=== PATIENT | male | born 1960 | race African-American/Black ===

== ENCOUNTER 2021-07-13 19:24 | Emergency (ER) | payer OTHER ==
[~2021-07-13] VITALS: Ht 182.9 cm; Wt 75.0 kg
[~2021-07-13 19:24] MED LIST: ATOR10TA69 PO; HYDR12.529 PO; LOSA25TA26 PO
[2021-07-13] MEDS ORDERED: SODIUM CHLORIDE 0.9% 1,000 ML IV ONE (20:00)
[2021-07-13 20:22] LABS: BASOPHILS % 0.6 % (0.0-2.0); EOSINOPHILS % 2.2 % (0.0-5.0); HEMATOCRIT. 38.7 % (42.0-52.0); HEMOGLOBIN. 13.6 g/dL (14.0-18.0); LYMPHOCYTES % 24.5 % (20.0-50.0); MEAN CORPUSCULAR HEMOGLOBIN 37.5 pg (28.0-32.0); MEAN CORPUSCULAR VOLUME 106.6 fL (80.0-94.0); MEAN PLATELET VOLUME 8.8 fl (7.4-10.4); MONOCYTES % 8.2 % (2.0-8.0); NEUTROPHILS % 64.5 % (40.0-76.0); PLATELET 135 x1000/uL (130-400); RED BLOOD CELL COUNT 3.63 mill/uL (4.7-6.1); RED CELL DISTRIBUTION WIDTH 13.3 % (11.6-14.6)
[2021-07-13 20:25] VITALS: BP 129/88
[2021-07-13 20:29] LABS: CHLORIDE 107 mEq/L (98-107)
[2021-07-13 20:51] LABS: ETHANOL BLOOD 375 mg/dL
== END 2021-07-13 23:25 | disposition home or self-care (01) ==
LOC: ER 19:24
DX: R55 Syncope and collapse (principal); D64.9 Anemia, unspecified; F10.129 Alcohol abuse with intoxication, unspecified; Y90.8 Blood alcohol level of 240 mg/100 ml or more; E78.00 Pure hypercholesterolemia, unspecified; I10 Essential (primary) hypertension; F17.290 Nicotine dependence, other tobacco product, uncomplicated; W19.XXXA Unspecified fall, initial encounter; Y93.89 Activity, other specified; Y92.89 Other specified places as the place of occurrence of the external cause; Y99.8 Other external cause status
CPT/HCPCS: 36415; 70450; 71045; 72125; 80053; 80307; 80320; 80329; 85025; 93005; 96360; 96361; 99285; J7030; G0480